=== PATIENT | male | born 1950 | race African-American/Black ===

== ENCOUNTER 2019-12-03 12:37 | Inpatient (IN) | payer MEDICARE, MEDICAID ==
[~2019-12-03] VITALS: Ht 175.3 cm; Wt 49.9 kg
[2019-12-03] MEDS ORDERED: SODIUM CHLORIDE 0.9% 1,000 ML IV ONE (13:03)
[2019-12-03] MEDS ORDERED: NALOXONE HCL 1 MG/ML 2ML VIAL IV ONE ×2 (13:15→18:30)
[2019-12-03 13:25] LABS: HEMATOCRIT. 40.8 % (42.0-52.0); MEAN CORPUSCULAR HEMOGLOBIN 32.6 pg (28.0-32.0); MEAN CORPUSCULAR VOLUME 95.1 fL (80.0-94.0); MEAN PLATELET VOLUME 8.7 fl (7.4-10.4); PLATELET 230 x1000/uL (130-400); RED BLOOD CELL COUNT 4.29 mill/uL (4.7-6.1); RED CELL DISTRIBUTION WIDTH 14.8 % (11.6-14.6)
[2019-12-03 13:26] LABS: CLARITY URINE CLOUDY (CLEAR); COLOR URINE YELLOW (YELLOW); KETONES URINE NEGATIVE (NEGATIVE); LEUKOCYTE ESTERASE URINE NEGATIVE (NEGATIVE); NITRITE URINE NEGATIVE (NEGATIVE); OCCULT BLOOD URINE TRACE (NEGATIVE); PH URINE 5.5 (4.5-8.0); PROTEIN URINE 1+ (NEGATIVE); SPECIFIC GRAVITY URINE 1.018 (1.005-1.030)
[2019-12-03 13:34] LABS: CHLORIDE 93 mEq/L (98-107)
[2019-12-03 13:38] LABS: ETHANOL BLOOD < 10 mg/dL
[2019-12-03] MEDS ORDERED: SODIUM CHLORIDE 0.9% 1000ML BAG (SEPSIS BOLUS) IV ONE (14:00)
[2019-12-03] MEDS ORDERED: CEFTRIAXONE 1 G PREMIX 50 ML IV ONE (14:00)
[2019-12-03] MEDS ORDERED: AZITHROMYCIN 500 MG in DEXT 5% WATER 250 ML IV ONE (14:00)
[2019-12-03 14:07] LABS: *AMPHETAMINES SCREEN URINE NEGATIVE (NEGATIVE); *BARBITURATES SCREEN URINE NEGATIVE (NEGATIVE); *BENZODIAZEPINES SCREEN URINE NEGATIVE (NEGATIVE); *COCAINE SCREEN URINE NEGATIVE (NEGATIVE)
[2019-12-03 14:08] LABS: CANNABINOID URINE SCREEN NEGATIVE (NEGATIVE); METHADONE URINE SCREEN PRESUMTIVE POSITIVE (NEGATIVE); OPIATES URINE SCREEN PRESUMTIVE POSITIVE (NEGATIVE); PHENCYCLIDINE URINE SCREEN NEGATIVE (NEGATIVE)
[2019-12-03 14:25] LABS: PLATELET ESTIMATE NORMAL
[2019-12-03 14:53] LABS: INR 1.1; PROTHROMBIN TIME 12.3 sec (9.6-11.0)
[2019-12-03] MEDS ORDERED: CLONIDINE 0.1MG TABLET PO PRN (17:30)
[2019-12-03] MEDS ORDERED: ONDANSETRON HCL 4MG/2ML INJ IV PRN (17:30)
[2019-12-03] MEDS ORDERED: LORAZEPAM 0.5MG TABLET PO PRN ×2 (17:30→22:00)
[2019-12-03] MEDS ORDERED: NITROGLYCERIN 0.4MG TABLET SL SL PRN (17:30)
[2019-12-03] MEDS ORDERED: ZOLPIDEM TARTRATE 5MG TABLET PO PRN (17:30)
[2019-12-03] MEDS ORDERED: MAGNESIUM/ALUMINUM HYDROXIDE/SIMETHICONE 30ML UDC PO PRN (17:30)
[2019-12-03] MEDS ORDERED: GUAIFENESIN/DM 600MG/30MG ER TAB 12HR PO SCH ×2 (17:30→21:00)
[2019-12-03] MEDS ORDERED: DOCUSATE SODIUM 100MG CAPSULE PO PRN (17:30)
[2019-12-03] MEDS ORDERED: ACETAMINOPHEN 325MG TABLET PO PRN (17:30)
[2019-12-03] MEDS ORDERED: GUAIFENESIN 200MG/10ML SUGAR FREE UDC PO PRN (17:30)
[2019-12-03] MEDS ORDERED: KETOROLAC 15MG/ML VIAL IV PRN (17:30)
[2019-12-03] MEDS: METHYLPREDNISOLONE SOD SUCC 125 MG/2 ML VIAL IV SCH (17:58)
[2019-12-03] MEDS ORDERED: PIPERACILLIN/TAZOBACTAM 3.375 G in DEXT 5% WATER 100 ML IV SCH (18:00)
[2019-12-03] MEDS: DILTIAZEM HCL 60MG TABLET PO SCH (18:00)
[2019-12-03] MEDS: ENOXAPARIN 40MG/0.4ML SYR SUBCUT SCH (18:06)
[2019-12-03] MEDS: IPRATROPIUM/ALBUTEROL 0.5-3(2.5)MG/3ML NEB NEB PRN (18:15)
[2019-12-03 18:46] LABS: BG CARBOXYHEMOGLOBIN 0.6 % (0.5-1.5); BG DEOXYHEMOGLOBIN 6.9 % (0.0-5.0); BG FRACTION INSPIRED OXYGEN 100; BG HCO3 ACT 31.3 mmol/L (22.0-26.0); BG METHEMOGLOBIN 0.2 % (0.0-1.5); BG OXYHEMOGLOBIN 92.3 % (94.0-97.0); BG PCO2 58.2 mmHg (35.0-45.0); BG PH 7.348 (7.350-7.450); BG PO2 71.8 mmHg (75.0-100.0); BG SAMPLE SITE RIGHT RADIAL; BG VENT MODE MASK - NRB
[2019-12-03] MEDS: IPRATROPIUM/ALBUTEROL 0.5-3(2.5)MG/3ML NEB HHN SCH (20:00)
[2019-12-03] MEDS ORDERED: ETOMIDATE 2MG/ML 10ML VIAL IV ONE ×2 (20:30→21:15)
[2019-12-03] MEDS ORDERED: SUCCINYLCHOLINE CHLORIDE 200MG/10ML IV ONE ×2 (20:30→21:15)
[2019-12-03] MEDS ORDERED: PROPOFOL 10MG/ML 100ML 100 ML IV ONE ×2 (20:43→21:15)
[2019-12-03] MEDS ORDERED: HYDRALAZINE 20MG/ML VIAL IV ONE (21:15)
[2019-12-03] MEDS ORDERED: LORAZEPAM 2MG/ML CPJ IV ONE ×2 (21:15→22:15)
[2019-12-03 23:03] LABS: CREATINE KINASE MB FRACTION 3.6 ng/mL (0.5-3.6)
[2019-12-04] VITALS (87 sets, daily range): BP systolic 78–152; BP diastolic 53–128
[2019-12-04] MEDS ORDERED: MIDAZOLAM HCL 50 MG in DEXTROSE 5% WATER 40 ML IV SCH ×4
[2019-12-04] MEDS ORDERED: PROPOFOL 10MG/ML 100ML 100 ML IV ONE (00:15)
[2019-12-04 00:27] LABS: BG BASE EXCESS 5.4 mmol/L (-2.0-2.0); BG CARBOXYHEMOGLOBIN 0.3 % (0.5-1.5); BG DEOXYHEMOGLOBIN 1.6 % (0.0-5.0); BG FRACTION INSPIRED OXYGEN 80; BG HCO3 ACT 31.5 mmol/L (22.0-26.0); BG METHEMOGLOBIN 0.3 % (0.0-1.5); BG OXYGEN SATURATION 98.4 % (92.0-98.5); BG OXYHEMOGLOBIN 97.8 % (94.0-97.0); BG PCO2 52.2 mmHg (35.0-45.0); BG PH 7.398 (7.350-7.450); BG PO2 128.6 mmHg (75.0-100.0); BG SAMPLE SITE RIGHT RADIAL; BG TIDAL VOLUME(mL) 500 mL; BG TOTAL HEMOGLOBIN 13.1 g/dL (12.0-18.0); BG VENT MODE VENT - A/C; BG VENT RATE 14 set
[2019-12-04] MEDS ORDERED: NOREPINEPHRINE 4 MG in DEXT 5% WATER 246 ML IV PRN (00:30)
[2019-12-04] MEDS: FAMOTIDINE 20MG TABLET PO SCH ×4 (00:44→20:43)
[2019-12-04] MEDS: DEXT 5%/LACTATED RINGERS 1,000 ML IV SCH ×2 (00:45→13:25)
[2019-12-04] MEDS: DILTIAZEM HCL 60MG TABLET PO SCH ×7 (01:05→23:45)
[2019-12-04] MEDS ORDERED: VANCOMYCIN 1250MG in DEXTROSE 5% WATER 250ML IV SCH (02:00)
[2019-12-04] MEDS: METHYLPREDNISOLONE SOD SUCC 125 MG/2 ML VIAL IV SCH ×3 (02:22→17:59)
[2019-12-04] MEDS: PIPERACILLIN/TAZOBACTAM 3.375 G in DEXT 5% WATER 100 ML IV SCH ×3 (02:25→20:44)
[2019-12-04 05:42] LABS: HEMATOCRIT. 36.5 % (42.0-52.0); HEMOGLOBIN. 12.2 g/dL (14.0-18.0); MEAN CORPUSCULAR HEMOGLOBIN 31.8 pg (28.0-32.0); MEAN CORPUSCULAR VOLUME 95.4 fL (80.0-94.0); MEAN PLATELET VOLUME 8.9 fl (7.4-10.4); PLATELET 151 x1000/uL (130-400); RED BLOOD CELL COUNT 3.82 mill/uL (4.7-6.1)
[2019-12-04 06:32] LABS: CHLORIDE 97 mEq/L (98-107)
[2019-12-04 06:41] LABS: PHOSPHORUS 3.1 mg/dL (2.5-4.9)
[2019-12-04 06:43] LABS: CREATINE KINASE 84 IU/L (39-308)
[2019-12-04 06:47] LABS: CREATINE KINASE MB FRACTION 2.7 ng/mL (0.5-3.6)
[2019-12-04] MEDS: IPRATROPIUM/ALBUTEROL 0.5-3(2.5)MG/3ML NEB HHN SCH ×4 (08:29→20:12)
[2019-12-04 08:36] LABS: BG BASE EXCESS 3.6 mmol/L (-2.0-2.0); BG DEOXYHEMOGLOBIN 0.7 % (0.0-5.0); BG FRACTION INSPIRED OXYGEN 80; BG HCO3 ACT 29.1 mmol/L (22.0-26.0); BG METHEMOGLOBIN 0.2 % (0.0-1.5); BG OXYGEN SATURATION 99.3 % (92.0-98.5); BG OXYHEMOGLOBIN 99.1 % (94.0-97.0); BG PCO2 47.9 mmHg (35.0-45.0); BG PH 7.401 (7.350-7.450); BG PO2 205.9 mmHg (75.0-100.0); BG SAMPLE SITE RIGHT RADIAL; BG TIDAL VOLUME(mL) 500 mL; BG TOTAL HEMOGLOBIN 12.3 g/dL (12.0-18.0); BG VENT MODE VENT - A/C; BG VENT RATE 14 set
[2019-12-04] MEDS: ASPIRIN 325MG EC TABLET PO SCH (09:16)
[2019-12-04 10:20] LABS: PLATELET ESTIMATE NORMAL
[2019-12-04] MEDS: VANCOMYCIN 1 G PREMIX 200 ML IV SCH (13:25)
[2019-12-04] MEDS: PROPOFOL 10MG/ML 100ML 100 ML IV PRN (17:11)
[2019-12-04] MEDS: ENOXAPARIN 40MG/0.4ML SYR SUBCUT SCH (17:58)
[2019-12-04] MEDS ORDERED: POTASSIUM CHLORIDE 20MEQ/PACKET PO NR (18:15)
[2019-12-05] VITALS (94 sets, daily range): BP systolic 83–166; BP diastolic 59–125
[2019-12-05] MEDS: IPRATROPIUM/ALBUTEROL 0.5-3(2.5)MG/3ML NEB HHN SCH ×7 (00:15→23:57)
[2019-12-05] MEDS: VANCOMYCIN 1 G PREMIX 200 ML IV SCH ×2 (01:33→13:46)
[2019-12-05] MEDS: METHYLPREDNISOLONE SOD SUCC 125 MG/2 ML VIAL IV SCH ×3 (01:34→17:13)
[2019-12-05] MEDS: DEXT 5%/LACTATED RINGERS 1,000 ML IV SCH ×2 (02:57→17:13)
[2019-12-05] MEDS: PIPERACILLIN/TAZOBACTAM 3.375 G in DEXT 5% WATER 100 ML IV SCH ×3 (03:24→20:45)
[2019-12-05 04:27] LABS: HEMATOCRIT. 41.5 % (42.0-52.0); HEMOGLOBIN. 13.8 g/dL (14.0-18.0); MEAN CORPUSCULAR HEMOGLOBIN 31.9 pg (28.0-32.0); MEAN CORPUSCULAR VOLUME 96.1 fL (80.0-94.0); MEAN PLATELET VOLUME 8.7 fl (7.4-10.4); PLATELET 164 x1000/uL (130-400); RED BLOOD CELL COUNT 4.32 mill/uL (4.7-6.1); RED CELL DISTRIBUTION WIDTH 15.4 % (11.6-14.6)
[2019-12-05 04:55] LABS: CHLORIDE 100 mEq/L (98-107)
[2019-12-05 05:01] LABS: PHOSPHORUS 2.5 mg/dL (2.5-4.9)
[2019-12-05] MEDS: DILTIAZEM HCL 60MG TABLET PO SCH ×3 (06:33→17:14)
[2019-12-05 08:25] LABS: BG BASE EXCESS 3.4 mmol/L (-2.0-2.0); BG CARBOXYHEMOGLOBIN 0.1 % (0.5-1.5); BG FRACTION INSPIRED OXYGEN 50; BG HCO3 ACT 29.2 mmol/L (22.0-26.0); BG METHEMOGLOBIN 0.1 % (0.0-1.5); BG OXYHEMOGLOBIN 85.8 % (94.0-97.0); BG PCO2 49.1 mmHg (35.0-45.0); BG PH 7.392 (7.350-7.450); BG PO2 50.2 mmHg (75.0-100.0); BG SAMPLE SITE RIGHT BRACHIAL; BG TIDAL VOLUME(mL) 500 mL; BG TOTAL HEMOGLOBIN 13.5 g/dL (12.0-18.0); BG VENT MODE VENT - A/C; BG VENT RATE 14 set
[2019-12-05] MEDS: ASPIRIN 325MG EC TABLET PO SCH (09:13)
[2019-12-05] MEDS: FAMOTIDINE 20MG TABLET PO SCH ×2 (09:14→20:45)
[2019-12-05] MEDS: PROPOFOL 10MG/ML 100ML 100 ML IV PRN (09:20)
[2019-12-05 10:39] LABS: PLATELET ESTIMATE NORMAL
[2019-12-05] MEDS ORDERED: DIATR MEGLU/DIATRIZOATE SOLN 30ML PO NR (11:15)
[2019-12-05] MEDS: ENOXAPARIN 30MG/0.3ML SYR SUBCUT SCH (20:48)
[2019-12-06] VITALS (92 sets, daily range): BP systolic 90–164; BP diastolic 58–108
[2019-12-06] MEDS: DILTIAZEM HCL 60MG TABLET PO SCH ×4 (00:59→17:36)
[2019-12-06] MEDS: VANCOMYCIN 1 G PREMIX 200 ML IV SCH ×2 (02:00→12:23)
[2019-12-06] MEDS: METHYLPREDNISOLONE SOD SUCC 125 MG/2 ML VIAL IV SCH ×2 (02:40→09:22)
[2019-12-06] MEDS: PROPOFOL 10MG/ML 100ML 100 ML IV PRN ×2 (02:49→17:37)
[2019-12-06] MEDS: IPRATROPIUM/ALBUTEROL 0.5-3(2.5)MG/3ML NEB HHN SCH ×5 (04:05→20:14)
[2019-12-06] MEDS: PIPERACILLIN/TAZOBACTAM 3.375 G in DEXT 5% WATER 100 ML IV SCH (04:42)
[2019-12-06] MEDS: DEXT 5%/LACTATED RINGERS 1,000 ML IV SCH ×2 (05:37→17:37)
[2019-12-06] MEDS ORDERED: VANCOMYCIN 750 MG PREMIX 150 ML IV SCH (09:00)
[2019-12-06 09:14] LABS: BG BASE EXCESS 1.1 mmol/L (-2.0-2.0); BG CARBOXYHEMOGLOBIN 0.1 % (0.5-1.5); BG FRACTION INSPIRED OXYGEN 100; BG HCO3 ACT 26.9 mmol/L (22.0-26.0); BG METHEMOGLOBIN 0.3 % (0.0-1.5); BG OXYHEMOGLOBIN 89.6 % (94.0-97.0); BG PCO2 46.8 mmHg (35.0-45.0); BG PH 7.377 (7.350-7.450); BG PO2 60.3 mmHg (75.0-100.0); BG SAMPLE SITE RIGHT RADIAL; BG TIDAL VOLUME(mL) 500 mL; BG TOTAL HEMOGLOBIN 14.6 g/dL (12.0-18.0); BG VENT MODE VENT - A/C; BG VENT RATE 14 set
[2019-12-06] MEDS: FAMOTIDINE 20MG TABLET PO SCH ×2 (09:23→21:50)
[2019-12-06] MEDS: ASPIRIN 325MG EC TABLET PO SCH (09:23)
[2019-12-06] MEDS ORDERED: PIPERACILLIN/TAZOBACTAM 3.375 G in DEXT 5% WATER 100 ML IV SCH (10:00)
[2019-12-06] MEDS ORDERED: INSULIN REGULAR (DRIP) 100 UNITS in SODIUM CHLORIDE 0.9% 99 ML IV SCH (10:59)
[2019-12-06] MEDS ORDERED: DEXTROSE 50% WATER 50ML SYRINGE IV PRN ×2 (11:00)
[2019-12-06] MEDS ORDERED: BLOOD SUGAR DIAGNOSTIC STRIP TEST SCH (11:00)
[2019-12-06] MEDS ORDERED: SODIUM CHLORIDE 10% FOR INH 15ML VIAL NEB INH SCH (12:00)
[2019-12-06] MEDS: MEROPENEM 1,000 MG in SODIUM CHLORIDE 0.9% 100 ML IV SCH ×2 (14:06→22:45)
[2019-12-06] MEDS: METHYLPREDNISOLONE SOD SUCC 40 MG/ML VIAL IV SCH (17:36)
[2019-12-06] MEDS: IPRATROPIUM/ALBUTEROL 0.5-3(2.5)MG/3ML NEB NEB PRN (17:58)
[2019-12-06] MEDS: ENOXAPARIN 30MG/0.3ML SYR SUBCUT SCH (21:50)
[2019-12-07] VITALS (56 sets, daily range): BP systolic 49–232; BP diastolic 29–140
[2019-12-07] MEDS: IPRATROPIUM/ALBUTEROL 0.5-3(2.5)MG/3ML NEB HHN SCH ×3 (00:22→07:35)
[2019-12-07] MEDS: DILTIAZEM HCL 60MG TABLET PO SCH ×2 (01:00→06:00)
[2019-12-07] MEDS: METHYLPREDNISOLONE SOD SUCC 40 MG/ML VIAL IV SCH (02:00)
[2019-12-07 02:46] LABS: BG BASE EXCESS -10.3 mmol/L (-2.0-2.0); BG CARBOXYHEMOGLOBIN 0.3 % (0.5-1.5); BG DEOXYHEMOGLOBIN 29.6 % (0.0-5.0); BG FRACTION INSPIRED OXYGEN 100; BG HCO3 ACT 22.6 mmol/L (22.0-26.0); BG METHEMOGLOBIN 0.3 % (0.0-1.5); BG OXYGEN SATURATION 70.2 % (92.0-98.5); BG OXYHEMOGLOBIN 69.8 % (94.0-97.0); BG PCO2 84.1 mmHg (35.0-45.0); BG PH 7.047 (7.350-7.450); BG PO2 48.2 mmHg (75.0-100.0); BG SAMPLE SITE LEFT RADIAL; BG TIDAL VOLUME(mL) 500 mL; BG TOTAL HEMOGLOBIN 17.1 g/dL (12.0-18.0); BG VENT MODE VENT - A/C; BG VENT RATE 14 set
[2019-12-07] MEDS: NOREPINEPHRINE 4 MG in DEXT 5% WATER 246 ML IV PRN ×2 (04:00→07:12)
[2019-12-07 04:27] LABS: BG BASE EXCESS -10.7 mmol/L (-2.0-2.0); BG CARBOXYHEMOGLOBIN 0.1 % (0.5-1.5); BG DEOXYHEMOGLOBIN 15.6 % (0.0-5.0); BG FRACTION INSPIRED OXYGEN 100; BG HCO3 ACT 25.5 mmol/L (22.0-26.0); BG METHEMOGLOBIN 0.1 % (0.0-1.5); BG OXYGEN SATURATION 84.4 % (92.0-98.5); BG OXYHEMOGLOBIN 84.2 % (94.0-97.0); BG PCO2 128.1 mmHg (35.0-45.0); BG PH 6.917 (7.350-7.450); BG PO2 71.1 mmHg (75.0-100.0); BG SAMPLE SITE RIGHT RADIAL; BG TIDAL VOLUME(mL) 500 mL; BG TOTAL HEMOGLOBIN 15.5 g/dL (12.0-18.0); BG VENT MODE VENT - A/C; BG VENT RATE 18 set
[2019-12-07] MEDS ORDERED: METHYLPREDNISOLONE SOD SUCC 40 MG/ML VIAL IV ONE (05:00)
[2019-12-07 05:24] LABS: HEMATOCRIT. 50.9 % (42.0-52.0); HEMOGLOBIN. 16.4 g/dL (14.0-18.0); MEAN CORPUSCULAR HEMOGLOBIN 31.9 pg (28.0-32.0); MEAN CORPUSCULAR VOLUME 98.8 fL (80.0-94.0); MEAN PLATELET VOLUME 9.9 fl (7.4-10.4); PLATELET 140 x1000/uL (130-400); RED BLOOD CELL COUNT 5.15 mill/uL (4.7-6.1); RED CELL DISTRIBUTION WIDTH 15.6 % (11.6-14.6)
[2019-12-07] MEDS ORDERED: METHYLPREDNISOLONE SOD IV SCH (06:00)
[2019-12-07] MEDS ORDERED: SODIUM CHLORIDE 0.9% IV SCH (06:00)
[2019-12-07] MEDS ORDERED: SODIUM BICARBONATE 150 MEQ in DEXTROSE 5% WATER 1,000 ML IV SCH (06:00)
[2019-12-07] MEDS: MEROPENEM 1,000 MG in SODIUM CHLORIDE 0.9% 100 ML IV SCH (06:33)
[2019-12-07] MEDS: VANCOMYCIN 1 G PREMIX 200 ML IV SCH (06:33)
[2019-12-07] MEDS ORDERED: PHENYLEPHRINE 40 MG in DEXT 5% WATER 246 ML IV PRN (07:30)
[2019-12-07 07:55] LABS: BG BASE EXCESS -11.2 mmol/L (-2.0-2.0); BG CARBOXYHEMOGLOBIN 0.3 % (0.5-1.5); BG FRACTION INSPIRED OXYGEN 100; BG HCO3 ACT 21.5 mmol/L (22.0-26.0); BG METHEMOGLOBIN 0.2 % (0.0-1.5); BG OXYGEN SATURATION 63.8 % (92.0-98.5); BG OXYHEMOGLOBIN 63.5 % (94.0-97.0); BG PCO2 83.5 mmHg (35.0-45.0); BG PH 7.028 (7.350-7.450); BG PO2 41.9 mmHg (75.0-100.0); BG SAMPLE SITE LEFT FEMORAL; BG TIDAL VOLUME(mL) 500 mL; BG TOTAL HEMOGLOBIN 15.2 g/dL (12.0-18.0); BG VENT MODE VENT - A/C; BG VENT RATE 24 set
[2019-12-07] MEDS: DEXT 5%/LACTATED RINGERS 1,000 ML IV SCH (08:00)
[2019-12-07 09:08] LABS: ABSOLUTE LYMPHOCYTES 0.2 x10E3/uL (0.7-3.1); ABSOLUTE MONOCYTES 0.2 x10E3/uL (0.1-0.9); ABSOLUTE NEUTROPHILS 3.8 x10E3/uL (1.4-7.0); BASOPHILS 0 % (Not Estab.); HEMATOCRIT 42.6 % (37.5-51.0); HEMATOLOGY COMMENT Note: (.); HEMOGLOBIN 14.1 g/dL (13.0-17.7); LYMPHOCYTES 3 % (Not Estab.); MEAN CORPUSCULAR HEMOGLOBIN 30.8 pg (26.6-33.0); MEAN CORPUSCULAR HGB CONC. 33.1 g/dL (31.5-35.7); MEAN CORPUSCULAR VOLUME 93 fL (79-97); MONOCYTES 3 % (Not Estab.); NEUTROPHILS 66 % (Not Estab.); PLATELETS 151 x10E3/uL (150-450); RBC 4.58 x10E6/uL (4.14-5.80); RED CELL DISTRIBUTION WIDTH 14.9 % (11.6-15.4); WBC 5.2 x10E3/uL (3.4-10.8)
[2019-12-07] MEDS ORDERED: NOREPINEPHRINE 16 MG in DEXT 5% WATER 234 ML IV PRN (09:30)
[2019-12-07 09:55] LABS: PLATELET ESTIMATE NORMAL
[2019-12-07] MEDS ORDERED: MEROPENEM 1000MG in NORMAL SALINE 100ML IV SCH (18:00)
== END 2019-12-07 09:37 | disposition expired | DRG 974 ==
LOC: ER 12:37 → MICUNO 16:35 → EDBEDREQ 16:37 → EDBEDREQSVC 22:43 → EDBEDREQTM 22:43 → ENRESERV 22:52
PROVIDERS: ADMIT Internal Medicine; ATTEND Internal Medicine
PROC: 5A1945Z Respiratory Ventilation, 24-96 Consecutive Hours (ICD-10-PCS; principal; 2019-12-03)
PROC: 0BH17EZ Insertion of Endotracheal Airway into Trachea, Via Natural or Artificial Opening (ICD-10-PCS; 2019-12-03)
PROC: 06HY33Z Insertion of Infusion Device into Lower Vein, Percutaneous Approach (ICD-10-PCS; 2019-12-03)
PROC: 5A09357 Assistance with Respiratory Ventilation, Less than 24 Consecutive Hours, Continuous Positive Airway Pressure (ICD-10-PCS; 2019-12-03)
PROC: 5A12012 Performance of Cardiac Output, Single, Manual (ICD-10-PCS; 2019-12-07)
DX: A41.9 Sepsis, unspecified organism (principal); J69.0 Pneumonitis due to inhalation of food and vomit; B20 Human immunodeficiency virus [HIV] disease; G92 Toxic encephalopathy; E43 Unspecified severe protein-calorie malnutrition; J96.01 Acute respiratory failure with hypoxia; R65.21 Severe sepsis with septic shock; J44.1 Chronic obstructive pulmonary disease with (acute) exacerbation; E87.1 Hypo-osmolality and hyponatremia; E87.2 Acidosis; Z68.1 Body mass index [BMI] 19.9 or less, adult; Z66 Do not resuscitate; I46.9 Cardiac arrest, cause unspecified; R00.1 Bradycardia, unspecified; R74.0 Nonspecific elevation of levels of transaminase and lactic acid dehydrogenase [LDH]; F11.10 Opioid abuse, uncomplicated; I10 Essential (primary) hypertension; E87.6 Hypokalemia; T40.2X1A Poisoning by other opioids, accidental (unintentional), initial encounter; Y92.89 Other specified places as the place of occurrence of the external cause
CPT/HCPCS: 36415; 36600; 71045; 71250; 74018; 74176; 80048; 80053; 80061; 80202; 80305; 80320; 81003; 82375; 82550; 82553; 82805; 82962; 83036; 83605; 83735; 84100; 84145; 84478; 84484; 85025; 86359; 86360; 87070; 87804; 92950; 93005; 93970; 94002; 94003; 94640; 94660; 96365; 99291; J0330; J0360; J0456; J0696; J1650; J1815; J2060; J2185; J2250; J2310; J2370; J2543; J2704; J2920; J2930; J3370; J3490; J7030; J7050; J7060; J7070; J7131; Q9963; G0480